=== PATIENT | female | born 1960 | race American Indian/Alaskan Native ===

== ENCOUNTER 2019-05-12 13:39 | Emergency (ER) | payer OTHER ==
--- NOTE | 2019-05-12 14:08 | Emergency Department Report ---
Chief Complaint: Shoulder Injury Stated Complaint: LEFT SIDE PAIN Time Seen by Provider: 05/12/19 14:01 - HPI History of Present Illness: pt is a 59 yo female who presents stating two months ago was involved in a work related accident states she has left shoulder pain and left hip pain she has been seeing [facility] for it has not seen an orthopedic doctor states she has been going to physical therapy states that she has not been able to go to physical therapy due to the pandemic in the last two weeks she denies any new fall or injury she denies any numbness or weakness no bowel or bladder incontinence no headache no vision changes able to lift arm above head Vitals are stable Patient has had no acute traumatic injury This has been ongoing for 2 months and she is already seeing someone for it and receiving physical therapy Discussed supportive care and symptomatic treatment with patient Patient will be referred to an orthopedic doctor for further evaluation and management advised pt may alternate tylenol or ibuprofen every 6-8 hours as needed for pain. may use ice pack, heating pad, rest, epsom salt bath. follow up with an orthopedic doctor. it is very important to follow up. return to the emergency room immediately for any new or worsening symptoms . medical screening examination performed and there is no threat to life or limb at this time MSE screening note: Focused history and physical exam performed. ED Disposition for MSE Clinical Impression: Left hip pain Left shoulder pain Qualifiers: Chronicity: acute Qualified Code(s): M25.512 - Pain in left shoulder Disposition: MED SCREENING EXAM-LEFT Is pt being admited?: No Does the pt Need Aspirin: No Condition: Stable Instructions: Sciatica (ED), Arthralgia (ED) Additional Instructions: may alternate tylenol or ibuprofen every 6-8 hours as needed for pain. may use ice pack, heating pad, rest, epsom salt bath. follow up with an orthopedic doctor. it is very important to follow up. return to the emergency room immediately for any new or worsening symptoms . Referrals: LUZ ELENA THAPA MD [Staff Physician] - 3-5 Days [facility] [Provider Group] - 3-5 Days Time of Disposition: 14:07 Print Language: BENINESE
[2019-05-12 16:52] VITALS: BP 133/69
== END 2019-05-12 14:10 | disposition left against medical advice (07) ==
LOC: ED 13:39
DX: M25.512 Pain in left shoulder (principal); M25.552 Pain in left hip
CPT/HCPCS: 99282